=== PATIENT | male | born 1955 ===

== ENCOUNTER 2016-05-31 09:36 | Inpatient (IN) | payer OTHER ==
[2016-05-31 09:47] VITALS: BMI 25.8
[2016-05-31] MEDS ORDERED: Labetalol 25mg/5ml Syringe IVP STA (10:08)
--- NOTE | 2016-05-31 10:11 | C.PDOC ---
History Of Present Illness NEW ONSET DIZZY, BLURRED VISION SINCE LAST NIGHT. DENIES VISION LOSS. +HEADACHE "BUT MILD". DENIES HO HTN. NO CP, SOB, NV. PATIENT DESCRIBES DIZZINESS LIGHTHEADENESS SENSATION. PATIENT DENIES VERTIGO TYPE SYMPTOMS. NOTES THAT HE NORMALLY WEARS READING GLASSES. EXAM NAD NEURO SEE [facility] REMAINDER NEG Time Seen by Provider: 05/31/16 10:06 Chief Complaint (Nursing): Dizziness/Lightheaded History Per: Patient History/Exam Limitations: no limitations Onset/Duration Of Symptoms: Days Current Symptoms Are (Timing): Still Present Recent travel outside of the [place]: No Past Medical History Reviewed: Historical Data, Nursing Documentation, Vital Signs Vital Signs: Last Vital Signs Temp 98.1 F 05/31/16 09:48 Pulse 67 05/31/16 10:54 Resp 14 05/31/16 10:54 BP 160/100 H 05/31/16 10:54 Pulse Ox 98 05/31/16 11:03 Family History: States: Unknown Family Hx Review Of Systems Except As Marked, All Systems Reviewed And Found Negative. Constitutional: Negative for: Fever, Chills Cardiovascular: Negative for: Chest Pain, Palpitations Respiratory: Negative for: Shortness of Breath Gastrointestinal: Negative for: Nausea, Vomiting Neurological: Positive for: Headache, Dizziness. Negative for: Weakness, Numbness Physical Exam - Physical Exam Appears: Non-toxic, No Acute Distress Skin: Normal Color, Warm, Dry Head: Atraumatic, Normacephalic Eye(s): bilateral: Normal Inspection, PERRL, EOMI, Other (SINGLE EYE TEST NEG) Oral Mucosa: Moist Chest: Symmetrical Cardiovascular: Rhythm Regular Respiratory: Normal Breath Sounds, No Rales, No Rhonchi, No Wheezing Gastrointestinal/Abdominal: Soft, No Tenderness, No Guarding, No Rebound Back: Normal Inspection Extremity: Normal ROM, Capillary Refill (< 2 SEC.) Neurological/Psych: Other (SEE [facility]) ED Course And Treatment - Laboratory Results Result Diagrams: 05/31/16 10:38 05/31/16 10:38 ECG: Interpreted By Mn ECG Rhythm: Sinus Rhythm ECG Interpretation: Abnormal Interpretation Of ECG: TWI II, III, AVF, V4-6; NO PRIOR Rate From EC O2 Sat by Pulse Oximetry: 98 Pulse Ox Interpretation: Normal - Radiology CXR: Interpreted by Me CXR Interpretation: Yes: No Acute Disease - CT Scan/US CT Head Other Rad Studies (CT/US): Read By Radiologist, Radiology Report Reviewed CT/US Interpretation: IMPRESSION: No acute intracranial abnormality. Progress - Re-Evaluation Re-evaluation Note: 05/31/16 10:08 CT HEAD, CXR, EKG, BLOODWORK ORDERED. LABETALOL DRIP. 05/31/16 10:39 CXR NEGATIVE FOR ACUTE DISEASE. 05/31/16 10:45 EXAM UNCH. MIN IMPROVE S/P LABETOLOL 05/31/16 11:02 D/W DR HENSLEY AWARE OF ER FINDINGS WILL ADMIT - Data Reviewed Data Reviewed: Lab, Diagnostic imaging, EKG, Old records - Continuity of Care Discussed patient case with:: Patient, Family-HIPPA compliant, On-call PMD-pt unassigned Disposition Counseled Patient/Family Regarding: Studies Performed, Diagnosis - Disposition Disposition: HOSPITALIZED Disposition Time: 11:02 Condition: STABLE - POA Present On Arrival: None - Clinical Impression Clinical Impression: Dizziness, Uncontrolled hypertension, Abnormal EKG, Blurry vision - Scribe Statement The provider has reviewed the documentation as recorded by the Kevin Loza Provider Scribe Attestation: All medical record entries made by the Scribe were at my direction and personally dictated by me. I have reviewed the chart and agree that the record accurately reflects my personal performance of the history, physical exam, medical decision making, and the department course for this patient. I have also personally directed, reviewed, and agree with the discharge instructions and disposition. Decision To Admit - Pt Status Changed To: Hospital Disposition Of: Inpatient - Admit Certification Admit to Inpatient:: After my assessment, the patient will require hospitalization for at least two midnights. This is because of the severity of symptoms shown, intensity of services needed, and/or the medical risk in this patient being treated as an outpatient. - InPatient: Physician Admission Certification: I certify that this patient requires 2 or more midnights of care for the following reason:: SEE NOTE - . Bed Request Type: Telemetry Admitting Physician: Norma Hensley Patient Diagnosis: Dizziness, Uncontrolled hypertension, Abnormal EKG, Blurry vision
[2016-05-31] MEDS ORDERED: Labetalol 300 MG in Dextrose 5% In Water 240 ML IV SCH (10:15)
[2016-05-31] MEDS ORDERED: Labetalol 25mg/5ml Syringe ONE (10:22)
--- NOTE | 2016-05-31 10:22 | CT ---
PROCEDURE: CT HEAD WITHOUT CONTRAST. HISTORY: DIZZY BLURRY VISION STOKE ALERT COMPARISON: None available. TECHNIQUE: Axial computed tomography images were obtained through the head/brain without intravenous contrast. Radiation dose: Total exam DLP = 764 mGy-cm. FINDINGS: HEMORRHAGE: No intracranial hemorrhage. BRAIN: No mass effect or edema. No atrophy or chronic microvascular ischemic changes. VENTRICLES: Unremarkable. No hydrocephalus. CALVARIUM: Unremarkable. PARANASAL SINUSES: Unremarkable as visualized. No significant inflammatory changes. MASTOID AIR CELLS: Unremarkable as visualized. No inflammatory changes. OTHER FINDINGS: None. IMPRESSION: No acute intracranial abnormality. If focal neurologic deficit persists, consider MRI. These findings were discussed with at 10:18 a.m. on 05/31/2016.
--- NOTE | 2016-05-31 10:42 | RAD ---
HISTORY: DIZZY, BLURRED VISION COMPARISON: No prior. FINDINGS: LUNGS: No active pulmonary disease. PLEURA: No significant pleural effusion identified, no pneumothorax apparent. CARDIOVASCULAR: Normal. OSSEOUS STRUCTURES: No significant abnormalities. VISUALIZED UPPER ABDOMEN: Normal. OTHER FINDINGS: None. IMPRESSION: No active disease.
[2016-05-31 10:49] LABS: BASO % 0.4 % (0.0-2.0); EOS % 1.4 % (0.0-4.0); LYMPH # 1.2 K/uL (1.0-4.3); LYMPH % 35.8 % (20.0-40.0); MEAN CELL VOLUME 80.2 fL (80.0-94.0); MEAN CORPUSCULAR HGB CONC 33.7 g/dL (33.0-37.0); MEAN PLATELET VOLUME 10.1 fL (7.2-11.7); MONO # 0.3 K/uL (0.0-0.8); MONO % 9.8 % (0.0-10.0); NRBC % 0.2 % (0.0-2.0); RED CELL DISTRIBUTION WIDTH 14.1 % (11.5-14.5); WHITE BLOOD COUNT 3.4 K/uL (4.8-10.8)
[2016-05-31 10:51] LABS: CHLORIDE 100 mmol/L (98-107)
[2016-05-31 10:52] LABS: POTASSIUM 3.6 mmol/L (3.6-5.2); SODIUM 141 mmol/L (132-148)
[2016-05-31 10:54] LABS: ALB/GLOB RATIO 1.3 (1.0-2.1); ALKALINE PHOSPHATASE 54 U/L (38-126); AST/SGOT 27 U/L (17-59); BILIRUBIN,TOTAL 0.9 mg/dL (0.2-1.3); BLOOD UREA NITROGEN 15 mg/dL (9-20); CARBON DIOXIDE 29 mmol/L (22-30); CHOLESTEROL 163 mg/dL (0-199); GFR AFRICAN-AMERICAN > 60; TOTAL PROTEIN 7.6 g/dL (6.3-8.3)
[2016-05-31 10:55] LABS: ALT/SGPT 36 U/L (21-72); CALCIUM 9.1 mg/dl (8.6-10.4); GLUCOSE,RANDOM 92 mg/dL (75-110)
--- NOTE | 2016-05-31 13:11 | CP.PCM.HP ---
<Holly Brown - Last Filed: 05/31/16 14:16> History of Present Illness - History of Present Illness History of Present Illness: Internal medicine H & P for Dr. Cruz Brown, PGY-1 Pt S & E at bedside. History obtained with aide of [facility] interpretion- Trisha #[id number] 61M Irish speaking only w/PMH sig for recurrent migraines admitted for headache x 1 day. Pt reports headache onset last night at 10pm. Headache is frontal, non radiation, moderate intensity, intermittent since onset. Has had headaches previously, this one was different due to dizziness, decreased vision , blurry vision, photophobia. Tried an advil without relief. No inciting, aggravating or alleviating factors identified. Pt was able to sleep last night , reports dizziness when getting up to go to the bathroom. Dizziness described as his body spinning within the room. Denies N/V/F/C, SOB, CP, palpitations, diaphoresis, cough, congestion, sore throat, rhinorrhea, constipation, diarrhea, dysuria, frequency, hematuria, hematochezia, gait changes, slurred speech, weakness, changes in eating, changes in weight, changes in sleep pattern. PMH: recurrent migraine headaches PSH: Denies All: Denies SH: Occasional ETOH use, Denies tobacco or illicit drug use PMD: Denies- last saw a dr in [place]- was told he had no health problems Home meds: Denies FH: F- HTN Present on Admission - Present on Admission Any Indicators Present on Admission: No History of DVT/PE: No History of Uncontrolled Diabetes: No Urinary Catheter: No Decubitus Ulcer Present: No Review of Systems - Review of Systems All systems: reviewed and no additional remarkable complaints except - Constitutional Constitutional: Headache. absent: Chills, Excessive Sweating, Fever, Weight Gain, Weight Loss, Weakness - EENT Eyes: Blurred Vision, Change in Vision, Photophobia, Loss of Vision. absent: Diplopia Ears: Dizziness Nose/Mouth/Throat: absent: Nasal Congestion, Nasal Discharge, Sore Throat - Cardiovascular Cardiovascular: absent: Chest Pain, Leg Edema, Palpitations - Respiratory Respiratory: absent: Cough, Chest Congestion - Gastrointestinal Gastrointestinal: absent: Abdominal Pain, Constipation, Diarrhea, Hematemesis, Hematochezia, Nausea, Vomiting - Genitourinary Genitourinary: absent: Change in Urinary Stream, Dysuria, Hematuria - Musculoskeletal Musculoskeletal: absent: Neck Pain, Numbness, Stiffness, Tingling - Neurological Neurological: Dizziness, Headaches. absent: Abnormal Gait, Weakness - Endocrine Endocrine: absent: Fatigue, Palpitations Past Patient History - Past Social History Smoking Status: Never Smoked - CARDIAC Hx Cardiac Disorders: Yes Hx Hypercholesterolemia: Yes - GASTROINTESTINAL Hx Gastrointestinal Disorders: Yes Hx Gastritis: Yes - PSYCHIATRIC Hx Substance Use: No - SURGICAL HISTORY Hx Surgeries: No Meds Allergies/Adverse Reactions: Allergies Allergy/AdvReac Type Severity Reaction Status Date / Time No Known Allergies Allergy Verified 05/31/16 09:47 Physical Exam - Constitutional Appears: Non-toxic, No Acute Distress - Head Exam Head Exam: ATRAUMATIC, NORMAL INSPECTION, NORMOCEPHALIC - Eye Exam Eye Exam: EOMI, Normal appearance, PERRL Pupil Exam: NORMAL ACCOMODATION, PERRL - ENT Exam ENT Exam: Mucous Membranes Moist, Normal Exam - Neck Exam Neck exam: Positive for: Full Rom, Normal Inspection - Respiratory Exam Respiratory Exam: Clear to Auscultation Bilateral, NORMAL BREATHING PATTERN. absent: Rales, Rhonchi, Wheezes, Respiratory Distress - Cardiovascular Exam Cardiovascular Exam: REGULAR RHYTHM, +S1, +S2 - GI/Abdominal Exam GI & Abdominal Exam: Normal Bowel Sounds, Soft. absent: Distended, Firm, Guarding, Hernia, Tenderness - Extremities Exam Extremities exam: Positive for: full ROM, normal inspection. Negative for: pedal edema, tenderness - Back Exam Back exam: FULL ROM, NORMAL INSPECTION. absent: muscle spasm, paraspinal tenderness, tenderness - Neurological Exam Neurological exam: Alert, CN II-XII Intact, Oriented x3 - Expanded Neurological Exam Expanded Neuro motor strength exam: Left Upper Extremity: 5, Right Upper Extremity: 5, Left Lower Extremity: 5, Right Lower Extremity: 5 - Psychiatric Exam Psychiatric exam: Normal Affect, Normal Mood - Skin Skin Exam: Dry, Intact, Normal Color, Warm Results - Vital Signs Recent Vital Signs: Last Vital Signs Temp 98.1 F 05/31/16 09:48 Pulse 75 05/31/16 12:51 Resp 16 05/31/16 12:51 BP 140/82 05/31/16 12:51 Pulse Ox 97 05/31/16 12:51 - Labs Result Diagrams: 05/31/16 10:38 05/31/16 10:38 Assessment & Plan - Assessment and Plan (Free Text) Assessment: HTN urgency BP 195/116 Given hydralazine & Labetalol in ED BP now 140/80 Started Lopressor 25mg PO BID ASA 81mg daily Zofran PRN Tylenol PRN FU Echo SRINIVASA neg x 1 FU serial SRINIVASA Cardio consulted- [facility] GI/DVT ppx SCDs Lovenox Ambulate w/assistance Dispo Admit to med surg VS @4H HHD OOBTC Ambulate w/assistance DW attending - Date & Time Date: 05/31/16 Time: 13:05 <Jamar Calderon - Last Filed: 05/31/16 17:08> Results - Vital Signs Recent Vital Signs: Last Vital Signs Temp 97.8 F 05/31/16 16:38 Pulse 76 05/31/16 16:38 Resp 14 05/31/16 16:38 BP 154/95 H 05/31/16 16:38 Pulse Ox 97 05/31/16 14:11 - Labs Result Diagrams: 05/31/16 10:38 05/31/16 10:38 Attending/Attestation - Attestation I have personally seen and examined this patient.: Yes I have fully participated in the care of the patient.: Yes I have reviewed all pertinent clinical information: Yes Notes (Text): 05/31/16 17:07 Patient was seen and examined at bedside with the resident the time of admission Patient denies any dizziness or chest discomfort at this time We will admit the patient to telemetry and we will get cardiology evaluation I discussed the plan of care with the resident and I agree with the above history and physical and assessment and plan by the resident
[2016-05-31] MEDS ORDERED: Enoxaparin 30 mg Syringe ONE (14:41)
[2016-05-31] MEDS: Enoxaparin 30 mg Syringe SC SCH (14:42)
[2016-05-31 20:51] VITALS: RESP 20
[2016-05-31] MEDS ORDERED: Pneumococcal 23-Valent Vaccine IM ONE (22:46)
[2016-06-01 07:08] LABS: BASO % 0.5 % (0.0-2.0); EOS % 1.5 % (0.0-4.0); HEMATOCRIT 40.9 % (35.0-51.0); LYMPH # 1.3 K/uL (1.0-4.3); MEAN CELL VOLUME 80.7 fL (80.0-94.0); MEAN CORPUSCULAR HEMOGLOBIN 27.1 pg (27.0-31.0); MEAN CORPUSCULAR HGB CONC 33.6 g/dL (33.0-37.0); MONO # 0.3 K/uL (0.0-0.8); MONO % 9.5 % (0.0-10.0); NRBC % 0.1 % (0.0-2.0); WHITE BLOOD COUNT 3.3 K/uL (4.8-10.8)
[2016-06-01 07:19] LABS: CHLORIDE 98 mmol/L (98-107)
[2016-06-01 07:20] LABS: POTASSIUM 3.3 mmol/L (3.6-5.2); SODIUM 141 mmol/L (132-148)
[2016-06-01 07:22] LABS: BILIRUBIN,TOTAL 0.9 mg/dL (0.2-1.3); GFR AFRICAN-AMERICAN > 60
[2016-06-01 07:23] LABS: ALB/GLOB RATIO 1.4 (1.0-2.1); ALKALINE PHOSPHATASE 51 U/L (38-126); ALT/SGPT 33 U/L (21-72); AST/SGOT 21 U/L (17-59); BLOOD UREA NITROGEN 15 mg/dL (9-20); CALCIUM 8.6 mg/dl (8.6-10.4); CARBON DIOXIDE 29 mmol/L (22-30); GLUCOSE,RANDOM 97 mg/dL (75-110); TOTAL PROTEIN 6.4 g/dL (6.3-8.3)
[2016-06-01] MEDS ORDERED: Potassium Chloride 20 mEq ER Tab PO ONE (08:36)
[2016-06-01] MEDS: Enoxaparin 30 mg Syringe SC SCH (09:19)
[2016-06-01] MEDS ORDERED: Influenza Virus Vaccine 45 mcg/0.5 ml Syr IM ONE (10:00)
[2016-06-01] MEDS ORDERED: Pneumococcal 23-Valent Vaccine IM ONE ×2 (10:00→13:30)
--- NOTE | 2016-06-01 13:12 | CP.PCM.CON ---
History of Present Illness - History of Present Illness History of Present Illness: 61M Tajik speaking only w/PMH sig for recurrent migraines admitted for headache x 1 day. Pt reports headache onset last night at 10pm. Headache is frontal, non radiation, moderate intensity, intermittent since onset. Has had headaches previously, this one was different due to dizziness, decreased vision , blurry vision, photophobia. Tried an advil without relief. No inciting, aggravating or alleviating factors identified. Denies N/V/F/C, SOB, CP, palpitations, diaphoresis, cough, congestion, sore throat, rhinorrhea, constipation, diarrhea, dysuria, frequency, hematuria, hematochezia, gait changes, slurred speech, weakness, changes in eating, changes in weight, changes in sleep pattern. UPON ADMISSION PT NOTED TO HAVE CRITICALLY HIGH BP. PMH: recurrent migraine headaches PSH: Denies All: Denies SH: Occasional ETOH use, Denies tobacco or illicit drug use Review of Systems - Constitutional Constitutional: As Per HPI - EENT Eyes: As Per HPI Ears: As Per HPI Nose/Mouth/Throat: As Per HPI - Cardiovascular Cardiovascular: As Per HPI - Respiratory Respiratory: As Per HPI - Gastrointestinal Gastrointestinal: As Per HPI - Musculoskeletal Musculoskeletal: As Per HPI - Integumentary Integumentary: As Per HPI - Neurological Neurological: As Per HPI - Psychiatric Psychiatric: As Per HPI - Endocrine Endocrine: As Per HPI - Hematologic/Lymphatic Hematologic: As Per HPI Past Patient History - Past Medical History & Family History Past Medical History?: Yes - Past Social History Smoking Status: Never Smoked Alcohol: Occasional - CARDIAC Hx Cardiac Disorders: Yes Hx Hypercholesterolemia: Yes Hx Hypertension: Yes - PULMONARY Hx Respiratory Disorders: No - NEUROLOGICAL Hx Neurological Disorder: No - HEENT Hx HEENT Problems: No - RENAL Hx Chronic Kidney Disease: No - ENDOCRINE/METABOLIC Hx Endocrine Disorders: No - HEMATOLOGICAL/ONCOLOGICAL Hx Blood Disorders: No - INTEGUMENTARY Hx Dermatological Problems: No - MUSCULOSKELETAL/RHEUMATOLOGICAL Hx Falls: No - GASTROINTESTINAL Hx Gastrointestinal Disorders: Yes Hx Gastritis: Yes - GENITOURINARY/GYNECOLOGICAL Hx Genitourinary Disorders: No - PSYCHIATRIC Hx Psychophysiologic Disorder: No Hx Substance Use: No - SURGICAL HISTORY Hx Surgeries: No - ANESTHESIA Hx Anesthesia: No Hx Anesthesia Reactions: No Meds Allergies/Adverse Reactions: Allergies Allergy/AdvReac Type Severity Reaction Status Date / Time No Known Allergies Allergy Verified 05/31/16 09:47 - Medications Medications: Current Medications Acetaminophen (Tylenol 325mg Tab) 650 mg PO Q6 PRN PRN Reason: Pain, moderate (4-7) Last Admin: 05/31/16 21:16 Dose: 650 mg Amlodipine Besylate (Norvasc) 5 mg PO DAILY REPLACED BY [facility] Aspirin (Aspirin Chewable) 81 mg PO DAILY REPL[facility] BY [facility] Last Admin: 06/01/16 09:21 Dose: 81 mg Enoxaparin Sodium (Lovenox) 30 mg SC DAILY REPLACED BY [facility] Last Admin: 06/01/16 09:19 Dose: 30 mg Famotidine (Pepcid) 20 mg PO BID REPL[facility] BY [facility] Last Admin: 06/01/16 09:19 Dose: 20 mg Metoprolol Tartrate (Lopressor) 25 mg PO Q6 REPLACED BY [facility] Ondansetron HCl (Zofran Inj) 4 mg IVP Q6 PRN PRN Reason: Nausea/Vomiting Physical Exam - Constitutional Appears: Well - Head Exam Head Exam: ATRAUMATIC, NORMAL INSPECTION, NORMOCEPHALIC - Eye Exam Eye Exam: EOMI, Normal appearance, PERRL Pupil Exam: NORMAL ACCOMODATION, PERRL - ENT Exam ENT Exam: Mucous Membranes Moist, Normal Exam - Neck Exam Neck exam: Positive for: Normal Inspection - Respiratory Exam Respiratory Exam: Clear to Auscultation Bilateral, NORMAL BREATHING PATTERN - Cardiovascular Exam Cardiovascular Exam: REGULAR RHYTHM - GI/Abdominal Exam GI & Abdominal Exam: Normal Bowel Sounds, Soft. absent: Tenderness - Extremities Exam Extremities exam: Positive for: normal inspection - Back Exam Back exam: NORMAL INSPECTION - Neurological Exam Neurological exam: Alert, CN II-XII Intact, Normal Gait, Oriented x3, Reflexes Normal - Psychiatric Exam Psychiatric exam: Normal Affect, Normal Mood - Skin Skin Exam: Dry, Intact, Normal Color, Warm Results - Vital Signs Recent Vital Signs: Last Vital Signs Temp 98.0 F 06/01/16 08:25 Pulse 75 06/01/16 08:25 Resp 20 06/01/16 08:25 BP 149/86 06/01/16 09:19 Pulse Ox 98 06/01/16 08:25 - Labs Result Diagrams: 06/01/16 06:55 06/01/16 06:55 Labs: Laboratory Results - last 24 hr 03/30/17 03/30/17 03/31/17 17:35 22:10 02:53 WBC RBC Hgb Hct MCV MCH MCHC RDW Plt Count MPV Neut % (Auto) Lymph % (Auto) [place] % (Auto) Eos % (Auto) Baso % (Auto) Neut # Lymph # [place] # Eos # Baso # Differential Comment Sodium Potassium Chloride Carbon Dioxide Anion Gap BUN Creatinine Est GFR ( Amer) Est GFR (Non-Af Amer) POC Glucose (mg/dL) 126 H Random Glucose Calcium Total Bilirubin AST ALT Alkaline Phosphatase Total Creatine Kinase 46 L 55 CK-MB (Mass) 0.28 0.35 Troponin I, Quant < 0.0120 < 0.0120 Total Protein Albumin Globulin Albumin/Globulin Ratio 06/01/16 06:55 WBC 3.3 L RBC 5.07 Hgb 13.8 Hct 40.9 MCV 80.7 MCH 27.1 MCHC 33.6 RDW 14.0 Plt Count 116 L MPV 9.0 Neut % (Auto) 48.5 L Lymph % (Auto) 40.0 [place] % (Auto) 9.5 Eos % (Auto) 1.5 Baso % (Auto) 0.5 Neut # 1.6 L Lymph # 1.3 [place] # 0.3 Eos # 0.0 Baso # 0.0 Differential Comment Sodium 141 Potassium 3.3 L Chloride 98 Carbon Dioxide 29 Anion Gap 17 BUN 15 Creatinine 0.9 Est GFR ( Amer) > 60 Est GFR (Non-Af Amer) > 60 POC Glucose (mg/dL) Random Glucose 97 Calcium 8.6 Total Bilirubin 0.9 AST 21 ALT 33 Alkaline Phosphatase 51 Total Creatine Kinase CK-MB (Mass) Troponin I, Quant Total Protein 6.4 Albumin 3.7 Globulin 2.7 Albumin/Globulin Ratio 1.4 Assessment & Plan (1) Blurry vision Status: Acute (2) Dizziness Status: Acute (3) Hypertensive urgency Status: Acute (4) Headache Status: Acute - Assessment and Plan (Free Text) Plan: PTS BP HAS DECREASED WILL INCREASE METOPROLOL THIS WILL TREAT BP AND MIGRAINES MONITOR BP WILL REVIEW ECHO
--- NOTE | 2016-06-01 17:18 | CP.PCM.PN ---
<Holly Brown - Last Filed: 06/01/16 17:15> Subjective - Date & Time of Evaluation Date of Evaluation: 06/01/16 Time of Evaluation: 09:00 - Subjective Subjective: Internal medicine progress note for Dr. Nilsa Brown, PGY-1 Pt S & E at bedside. Pt reports headache much improved, no longer dizzy, vision ok. Denies N/V/F/C, SOB, CP, eating ok, tolerating diet, sleeping ok, gait normal. Objective - Vital Signs/Intake and Output Vital Signs (last 24 hours): Temp Pulse Resp BP Pulse Ox 98.2 F 83 20 144/77 98 06/01/16 16:00 06/01/16 16:00 06/01/16 16:00 06/01/16 16:00 06/01/16 16:00 - Medications Medications: Current Medications Acetaminophen (Tylenol 325mg Tab) 650 mg PO Q6 PRN PRN Reason: Pain, moderate (4-7) Last Admin: 05/31/16 21:16 Dose: 650 mg Amlodipine Besylate (Norvasc) 5 mg PO DAILY [facility] Aspirin (Aspirin Chewable) 81 mg PO DAILY [facility] Last Admin: 06/01/16 09:21 Dose: 81 mg Enoxaparin Sodium (Lovenox) 30 mg SC DAILY [facility] Last Admin: 06/01/16 09:19 Dose: 30 mg Famotidine (Pepcid) 20 mg PO BID [facility] Last Admin: 06/01/16 09:19 Dose: 20 mg Metoprolol Tartrate (Lopressor) 25 mg PO Q6 [facility] Ondansetron HCl (Zofran Inj) 4 mg IVP Q6 PRN PRN Reason: Nausea/Vomiting - Labs Labs: 06/01/16 06:55 06/01/16 06:55 PT 11.8 SECONDS (9.7-12.2) 05/31/16 10:38 INR 1.0 05/31/16 10:38 APTT 29 SECONDS (21-34) 05/31/16 10:38 - Constitutional Appears: Non-toxic, No Acute Distress - Head Exam Head Exam: ATRAUMATIC, NORMAL INSPECTION, NORMOCEPHALIC - Eye Exam Eye Exam: EOMI, Normal appearance, PERRL. absent: Nystagmus Pupil Exam: NORMAL ACCOMODATION, PERRL - ENT Exam ENT Exam: Mucous Membranes Moist, Normal Exam - Neck Exam Neck Exam: Full ROM, Normal Inspection - Respiratory Exam Respiratory Exam: Clear to Ausculation Bilateral, NORMAL BREATHING PATTERN. absent: Rales, Rhonchi, Wheezes, Respiratory Distress - Cardiovascular Exam Cardiovascular Exam: REGULAR RHYTHM, +S1, +S2 - GI/Abdominal Exam GI & Abdominal Exam: Soft, Normal Bowel Sounds. absent: Tenderness - Rectal Exam Rectal Exam: NORMAL INSPECTION - Extremities Exam Extremities Exam: Full ROM, Normal Inspection. absent: Pedal Edema, Tenderness - Back Exam Back Exam: Full ROM, NORMAL INSPECTION - Neurological Exam Neurological Exam: Alert, Awake, CN II-XII Intact, Normal Gait, Oriented x3 - Psychiatric Exam Psychiatric exam: Normal Affect, Normal Mood - Skin Skin Exam: Dry, Intact, Normal Color, Warm Assessment and Plan - Assessment and Plan (Free Text) Assessment: HTN urgency BP 195/116 on admission BP 161/91 Lopressor 25mg PO BID ASA 81mg daily Zofran PRN Tylenol PRN FU Echo- pending report SRINIVASA neg x 3 Lipid panel WNL Cardio consulted- [facility]- recs to increase metoprolol to Q6H to treat BP & Migraines, will review echo GI/DVT ppx SCDs Lovenox Ambulate w/assistance Dispo HHD OOBTC Ambulate w/assistance Discharge pending cardiac clearance & echo report DW attending <Jamar Calderon - Last Filed: 06/01/16 17:54> Objective - Vital Signs/Intake and Output Vital Signs (last 24 hours): Temp Pulse Resp BP Pulse Ox 98.2 F 83 20 144/77 98 06/01/16 16:00 06/01/16 16:00 06/01/16 16:00 06/01/16 17:31 06/01/16 16:00 - Medications Medications: Current Medications Acetaminophen (Tylenol 325mg Tab) 650 mg PO Q6 PRN PRN Reason: Pain, moderate (4-7) Last Admin: 05/31/16 21:16 Dose: 650 mg Amlodipine Besylate (Norvasc) 5 mg PO DAILY [facility] Aspirin (Aspirin Chewable) 81 mg PO DAILY [facility] Last Admin: 06/01/16 09:21 Dose: 81 mg Enoxaparin Sodium (Lovenox) 30 mg SC DAILY [facility] Last Admin: 06/01/16 09:19 Dose: 30 mg Famotidine (Pepcid) 20 mg PO BID [facility] Last Admin: 06/01/16 17:32 Dose: 20 mg Metoprolol Tartrate (Lopressor) 25 mg PO Q6 [facility] Last Admin: 06/01/16 17:31 Dose: 25 mg Ondansetron HCl (Zofran Inj) 4 mg IVP Q6 PRN PRN Reason: Nausea/Vomiting - Labs Labs: 06/01/16 06:55 06/01/16 06:55 PT 11.8 SECONDS (9.7-12.2) 05/31/16 10:38 INR 1.0 05/31/16 10:38 APTT 29 SECONDS (21-34) 05/31/16 10:38 Attending/Attestation - Attestation I have personally seen and examined this patient.: Yes I have fully participated in the care of the patient.: Yes I have reviewed all pertinent clinical information, including history, physical exam and plan: Yes Notes (Text): 06/01/16 17:53 Patient was seen and examined at bedside with the resident at the rounds today Patient denies any dizziness at this time Denies any chest pain, chest discomfort or palpitation Patient's echocardiogram report is pending Cardiology evaluation seen in appreciated Patient blood pressure medication titrated for optimal control Discharge planning pending clearance from cardiology likely tomorrow I discussed the plan of care with the resident and agree with the above history and physical and assessment/plan by the resident
--- NOTE | 2016-06-02 06:27 | CARD ---
APPROVED REPORT EKG Measurement Heart [id number] NM [id number] <Conclusion> Normal sinus rhythm Possible Left atrial enlargement Left axis deviation Left ventricular hypertrophy T wave abnormality, consider lateral ischemia Abnormal ECG
--- NOTE | 2016-06-02 07:20 | CP.PCM.PN ---
Objective - Vital Signs/Intake and Output Vital Signs (last 24 hours): Temp Pulse Resp BP Pulse Ox 97.9 F 72 20 135/86 98 06/02/16 04:39 06/02/16 04:39 06/02/16 04:39 06/02/16 05:17 06/01/16 23:40 Intake and Output: 06/02/16 06/02/16 06:59 18:59 Intake Total 500 Balance 500 - Medications Medications: Current Medications Acetaminophen (Tylenol 325mg Tab) 650 mg PO Q6 PRN PRN Reason: Pain, moderate (4-7) Last Admin: 05/31/16 21:16 Dose: 650 mg Amlodipine Besylate (Norvasc) 5 mg PO DAILY [facility] Aspirin (Aspirin Chewable) 81 mg PO DAILY [facility] Last Admin: 06/01/16 09:21 Dose: 81 mg Enoxaparin Sodium (Lovenox) 30 mg SC DAILY [facility] Last Admin: 06/01/16 09:19 Dose: 30 mg Famotidine (Pepcid) 20 mg PO BID [facility] Last Admin: 06/01/16 17:32 Dose: 20 mg Metoprolol Tartrate (Lopressor) 25 mg PO Q6 [facility] Last Admin: 06/02/16 05:17 Dose: 25 mg Ondansetron HCl (Zofran Inj) 4 mg IVP Q6 PRN PRN Reason: Nausea/Vomiting - Labs Labs: 06/01/16 06:55 06/01/16 06:55 PT 11.8 SECONDS (9.7-12.2) 05/31/16 10:38 INR 1.0 05/31/16 10:38 APTT 29 SECONDS (21-34) 05/31/16 10:38
[2016-06-02 07:46] LABS: BASO % 0.4 % (0.0-2.0); EOS # 0.1 K/uL (0.0-0.7); EOS % 1.6 % (0.0-4.0); HEMATOCRIT 42.2 % (35.0-51.0); LYMPH # 1.5 K/uL (1.0-4.3); LYMPH % 34.7 % (20.0-40.0); MEAN CELL VOLUME 80.9 fL (80.0-94.0); MEAN CORPUSCULAR HEMOGLOBIN 26.9 pg (27.0-31.0); MEAN CORPUSCULAR HGB CONC 33.3 g/dL (33.0-37.0); MEAN PLATELET VOLUME 9.6 fL (7.2-11.7); MONO # 0.4 K/uL (0.0-0.8); MONO % 8.3 % (0.0-10.0); RED CELL DISTRIBUTION WIDTH 14.1 % (11.5-14.5); WHITE BLOOD COUNT 4.2 K/uL (4.8-10.8)
[2016-06-02 07:56] LABS: CHLORIDE 99 mmol/L (98-107); SODIUM 141 mmol/L (132-148)
[2016-06-02 07:57] LABS: POTASSIUM 3.6 mmol/L (3.6-5.2)
[2016-06-02 07:59] LABS: ALB/GLOB RATIO 1.4 (1.0-2.1); ALKALINE PHOSPHATASE 51 U/L (38-126); ALT/SGPT 27 U/L (21-72); AST/SGOT 20 U/L (17-59); BILIRUBIN,TOTAL 0.5 mg/dL (0.2-1.3); BLOOD UREA NITROGEN 17 mg/dL (9-20); CARBON DIOXIDE 28 mmol/L (22-30); GFR AFRICAN-AMERICAN > 60; GLUCOSE,RANDOM 94 mg/dL (75-110); TOTAL PROTEIN 6.5 g/dL (6.3-8.3)
[2016-06-02] MEDS: Enoxaparin 30 mg Syringe SC SCH (10:37)
--- NOTE | 2016-06-02 14:05 | CP.PCM.DIS ---
<Luis Hernández H - Last Filed: 06/02/16 19:51> Provider - Provider Date of Admission: 05/31/16 11:04 Attending physician: Jamar Calderon MD Primary care physician: none Consults: Dr. Godoy cardiology Time Spent in preparation of Discharge (in minutes): 30 Hospital Course - Lab Results Lab Results: Most Recent Lab Values WBC 4.2 K/uL (4.8-10.8) L 06/02/16 07:30 RBC 5.21 Mil/uL (4.40-5.90) 06/02/16 07:30 Hgb 14.0 g/dL (12.0-18.0) 06/02/16 07:30 Hct 42.2 % (35.0-51.0) 06/02/16 07:30 MCV 80.9 fL (80.0-94.0) 06/02/16 07:30 MCH 26.9 pg (27.0-31.0) L 06/02/16 07:30 MCHC 33.3 g/dL (33.0-37.0) 06/02/16 07:30 RDW 14.1 % (11.5-14.5) 06/02/16 07:30 Plt Count 128 K/uL (130-400) L 06/02/16 07:30 MPV 9.6 fL (7.2-11.7) 06/02/16 07:30 Neut % (Auto) 55.0 % (50.0-75.0) 06/02/16 07:30 Lymph % (Auto) 34.7 % (20.0-40.0) 06/02/16 07:30 Crisp % (Auto) 8.3 % (0.0-10.0) 06/02/16 07:30 Eos % (Auto) 1.6 % (0.0-4.0) 06/02/16 07:30 Baso % (Auto) 0.4 % (0.0-2.0) 06/02/16 07:30 Neut # 2.3 K/uL (1.8-7.0) 06/02/16 07:30 Lymph # 1.5 K/uL (1.0-4.3) 06/02/16 07:30 Crisp # 0.4 K/uL (0.0-0.8) 06/02/16 07:30 Eos # 0.1 K/uL (0.0-0.7) 06/02/16 07:30 Baso # 0.0 K/uL (0.0-0.2) 06/02/16 07:30 Differential Comment 06/01/16 06:55 PT 11.8 SECONDS (9.7-12.2) 05/31/16 10:38 INR 1.0 05/31/16 10:38 APTT 29 SECONDS (21-34) 05/31/16 10:38 Sodium 141 mmol/L (132-148) 06/02/16 07:30 Potassium 3.6 mmol/L (3.6-5.2) 06/02/16 07:30 Chloride 99 mmol/L (98-107) 06/02/16 07:30 Carbon Dioxide 28 mmol/L (22-30) 06/02/16 07:30 Anion Gap 18 (10-20) 06/02/16 07:30 BUN 17 mg/dL (9-20) 06/02/16 07:30 Creatinine 1.0 MG/DL (0.8-1.5) 06/02/16 07:30 Est GFR ( Amer) > 60 06/02/16 07:30 Est GFR (Non-Af Amer) > 60 06/02/16 07:30 POC Glucose (mg/dL) 79 mg/dL (65-110) 06/01/16 21:49 Random Glucose 94 mg/dL (75-110) 06/02/16 07:30 Hemoglobin A1c 5.6 % (4.2-6.5) 05/31/16 10:38 Calcium 9.0 mg/dl (8.6-10.4) 06/02/16 07:30 Total Bilirubin 0.5 mg/dL (0.2-1.3) 06/02/16 07:30 AST 20 U/L (17-59) 06/02/16 07:30 ALT 27 U/L (21-72) 06/02/16 07:30 Alkaline Phosphatase 51 U/L (38-126) 06/02/16 07:30 Total Creatine Kinase 55 U/L (55-170) 06/01/16 02:53 CK-MB (Mass) 0.35 ng/mL (0.0-3.38) 06/01/16 02:53 Troponin I < 0.0120 ng/mL (0.00-0.120) 05/31/16 10:38 Troponin I, Quant < 0.0120 ng/mL (0.00-0.120) 06/01/16 02:53 Total Protein 6.5 g/dL (6.3-8.3) 06/02/16 07:30 Albumin 3.8 g/dL (3.5-5.0) 06/02/16 07:30 Globulin 2.7 gm/dL (2.2-3.9) 06/02/16 07:30 Albumin/Globulin Ratio 1.4 (1.0-2.1) 06/02/16 07:30 Triglycerides 78 mg/dL (0-149) 05/31/16 10:38 Cholesterol 163 mg/dL (0-199) 05/31/16 10:38 LDL Cholesterol Direct 89 mg/dL (0-129) 05/31/16 10:38 HDL Cholesterol 46 mg/dL (30-70) 05/31/16 10:38 Blood Type O POSITIVE 05/31/16 10:38 Antibody Screen Negative 05/31/16 10:38 - Hospital Course Hospital Course: Inital history 61M Indonesian speaking only w/PMH sig for recurrent migraines admitted for headache x 1 day. Pt reports headache onset last night at 10pm. Headache is frontal, non radiation, moderate intensity, intermittent since onset. Has had headaches previously, this one was different due to dizziness, decreased vision , blurry vision, photophobia. Tried an advil without relief. No inciting, aggravating or alleviating factors identified. Pt was able to sleep last night , reports dizziness when getting up to go to the bathroom. Dizziness described as his body spinning within the room. Denies N/V/F/C, SOB, CP, palpitations, diaphoresis, cough, congestion, sore throat, rhinorrhea, constipation, diarrhea, dysuria, frequency, hematuria, hematochezia, gait changes, slurred speech, weakness, changes in eating, changes in weight, changes in sleep pattern. Hospital course: Patient admitted for HTN urgency. He was ruled out for OH with 3 consecutive negative cardiac enzyme. Given IV medication for blood pressure and also given PO medication. An echo showed the follow per Dr. Godoy: Grad 1 diastolic dysfunction with normal EF at 60%, Mild to moderate tricuspid regurtiation, papillary arterial pressure is 30, Left Atria mildy enlarged. Patient had his vital signs monitored and was also monitored on telemetry as well. Discharge Plan Patient to be discharged per Dr. Calderon and Dr. Godoy. Patient will take Toprol XL 50mg twice a day and Norvasc 5mg once a day. He will be given a 30 day script for each medication. He will need to follow up with [facility] ([phone]) for post hospital follow up and medication refill and to establish primary care. Patient to return to ED if symptoms return. Discharge Diagnosis HTN urgency Grade 1 diastolic dysfunction Discharge Exam - Head Exam Head Exam: ATRAUMATIC, NORMAL INSPECTION, NORMOCEPHALIC - Eye Exam Eye Exam: Normal appearance Pupil Exam: NORMAL ACCOMODATION - Neck Exam Neck exam: Normal Inspection - Respiratory Exam Respiratory Exam: NORMAL BREATHING PATTERN - Cardiovascular Exam Cardiovascular Exam: REGULAR RHYTHM, RRR, +S1, +S2 - Extremities Exam Extremities exam: normal inspection - Back Exam Back exam: NORMAL INSPECTION - Neurological Exam Neurological exam: Oriented x3 - Psychiatric Exam Psychiatric exam: Normal Affect, Normal Mood - Skin Skin Exam: Normal Color, Warm Discharge Plan - Discharge Medications Prescriptions: amLODIPine [Norvasc] 5 mg PO ONCE #30 tab Metoprolol Succinate XL [Toprol XL] 50 mg PO BID #60 tab - Follow Up Plan Condition: STABLE Disposition: HOME/ ROUTINE Instructions: Metoprolol (By mouth), Amlodipine (By mouth), Heart Healthy Diet (DC), Hypertension (DC), Dizziness (GEN) Additional Instructions: Patient to be discharged per Dr. Calderon and Dr. Godoy. Patient will take Toprol XL 50mg twice a day and Norvasc 5mg once a day. He will be given a 30 day script for each medication. He will need to follow up with [facility] ([phone]) for post hospital follow up and medication refill and to establish primary care. Patient to return to ED if symptoms return. <Jamar Calderon - Last Filed: 06/03/16 14:08> Provider - Provider Date of Admission: 05/31/16 11:04 Attending physician: Jamar Calderon MD Hospital Course - Lab Results Lab Results: Most Recent Lab Values WBC 4.2 K/uL (4.8-10.8) L 06/02/16 07:30 RBC 5.21 Mil/uL (4.40-5.90) 06/02/16 07:30 Hgb 14.0 g/dL (12.0-18.0) 06/02/16 07:30 Hct 42.2 % (35.0-51.0) 06/02/16 07:30 MCV 80.9 fL (80.0-94.0) 06/02/16 07:30 MCH 26.9 pg (27.0-31.0) L 06/02/16:30 MCHC 33.3 g/dL (33.0-37.0) 06/02/16 07: RDW 14.1 % (11.5-14.5) 06/02/16 07:30 Plt Count 128 K/uL (130-400) L 06/02/16:30 MPV 9.6 fL (7.2-11.7) 06/02/16 07:30 Neut % (Auto) 55.0 % (50.0-75.0) 06/02/16 07:30 Lymph % (Auto) 34.7 % (20.0-40.0) 06/02/16 07:30 Crisp % (Auto) 8.3 % (0.0-10.0) 06/02/16 07:30 Eos % (Auto) 1.6 % (0.0-4.0) 06/02/16 07:30 Baso % (Auto) 0.4 % (0.0-2.0) 06/02/16 07:30 Neut # 2.3 K/uL (1.8-7.0) 06/02/16 07:30 Lymph # 1.5 K/uL (1.0-4.3) 06/02/16 07:30 Crisp # 0.4 K/uL (0.0-0.8) 06/02/16 07:30 Eos # 0.1 K/uL (0.0-0.7) 06/02/16 07:30 Baso # 0.0 K/uL (0.0-0.2) 06/02/16 07:30 Differential Comment 06/01/16 06:55 PT 11.8 SECONDS (9.7-12.2) 05/31/16 10:38 INR 1.0 05/31/16 10:38 APTT 29 SECONDS (21-34) 05/31/16 10:38 Sodium 141 mmol/L (132-148) 06/02/16 07:30 Potassium 3.6 mmol/L (3.6-5.2) 06/02/16 07:30 Chloride 99 mmol/L (98-107) 06/02/16 07:30 Carbon Dioxide 28 mmol/L (22-30) 06/02/16 07:30 Anion Gap 18 (10-20) 06/02/16 07:30 BUN 17 mg/dL (9-20) 06/02/16 07:30 Creatinine 1.0 MG/DL (0.8-1.5) 06/02/16 07:30 Est GFR ( Amer) > 60 06/02/16 07:30 Est GFR (Non-Af Amer) > 60 06/02/16 07:30 POC Glucose (mg/dL) 79 mg/dL (65-110) 06/01/16 21:49 Random Glucose 94 mg/dL (75-110) 06/02/16 07:30 Hemoglobin A1c 5.6 % (4.2-6.5) 05/31/16 10:38 Calcium 9.0 mg/dl (8.6-10.4) 06/02/16 07:30 Total Bilirubin 0.5 mg/dL (0.2-1.3) 06/02/16 07:30 AST 20 U/L (17-59) 06/02/16 07:30 ALT 27 U/L (21-72) 06/02/16 07:30 Alkaline Phosphatase 51 U/L (38-126) 06/02/16 07:30 Total Creatine Kinase 55 U/L (55-170) 06/01/16 02:53 CK-MB (Mass) 0.35 ng/mL (0.0-3.38) 06/01/16 02:53 Troponin I < 0.0120 ng/mL (0.00-0.120) 05/31/16 10:38 Troponin I, Quant < 0.0120 ng/mL (0.00-0.120) 06/01/16 02:53 Total Protein 6.5 g/dL (6.3-8.3) 06/02/16 07:30 Albumin 3.8 g/dL (3.5-5.0) 06/02/16 07:30 Globulin 2.7 gm/dL (2.2-3.9) 06/02/16 07:30 Albumin/Globulin Ratio 1.4 (1.0-2.1) 06/02/16 07:30 Triglycerides 78 mg/dL (0-149) 05/31/16 10:38 Cholesterol 163 mg/dL (0-199) 05/31/16 10:38 LDL Cholesterol Direct 89 mg/dL (0-129) 05/31/16 10:38 HDL Cholesterol 46 mg/dL (30-70) 05/31/16 10:38 Blood Type O POSITIVE 05/31/16 10:38 Antibody Screen Negative 05/31/16 10:38 Attending/Attestation - Attestation I have personally seen and examined this patient.: Yes I have fully participated in the care of the patient.: Yes I have reviewed all pertinent clinical information, including history, physical exam and plan: Yes Notes (Text): 06/03/16 14:06 Patient was seen and examined at bedside with the resident during rounds Patient denies any chest discomfort, dizziness, headache Echocardiogram reviewed by Dr. Godoy. As per his report patient has: Grade 1 diastolic dysfunction with normal EF at 60%, Mild to moderate tricuspid regurgitation, papillary arterial pressure is 30, Left Atria mildly enlarged. Patient clear for discharge by cardiology Discharge medication prescriptions provided to the patient Patient will follow-up with the [facility] I agree with the above discharge note by the resident.
[2016-06-02 15:25] VITALS: BP 155/84; PULSE 70; TEMP 97.9; O2SAT 98
--- NOTE | 2016-06-02 18:17 | CARD ---
APPROVED REPORT EXAM: Two-dimensional and M-mode echocardiogram with Doppler and color Doppler. Other Information Quality : GoodRhythm : INDICATION Abnormal EKG/Arrhythmia Dizziness and Vertigo RISK FACTORS Hypertension M-Mode DIMENSIONS RVDd1.43 (2.1-3.2cm)Left Atrium (MM)2.99 (2.5-4.0cm) IVSd1.20 (0.7-1.1cm)Aortic Root3.09 (2.2-3.7cm) LVDd5.11 (4.0-5.6cm)Aortic Cusp Exc.2.21 (1.5-2.0cm) PWd0.93 (0.7-1.1cm)FS (%) 25 % LVDs3.81 (2.0-3.8cm)LVEF (%)50 (>50%) Aortic Valve AI P 1/2 [id number] Mitral Valve MV E Dmfnysjb12.2cm/sMV A Dcleeckj77.0cm/sE/A ratio0.6 TDI E/Lateral E'0.0E/Medial E'0.0 Tricuspid Valve TR Peak Eshxxygs131jq/sTR Peak Gr.06jqTqMJBO40ixSs LEFT VENTRICLE The left ventricle is normal size. There is normal left ventricular wall thickness. Left ventricle systolic function is normal. The Ejection Fraction is 50-55%. There is normal LV segmental wall motion. Tissue Doppler imaging reveals abnormal left ventricular diastolic dysfunction. RIGHT VENTRICLE The right ventricle is normal size. There is normal right ventricular wall thickness. The right ventricular systolic function is normal. ATRIA The left atrium size is normal. The right atrium size is normal. The interatrial septum is intact with no evidence for an atrial septal defect. AORTIC VALVE The aortic valve is normal in structure. There is trace to mild aortic regurgitation. There is no aortic valvular stenosis. There is no aortic valvular vegetation. MITRAL VALVE The mitral valve is normal in structure. There is no mitral valve stenosis. Mitral regurgitation is mild. TRICUSPID VALVE The tricuspid valve is normal in structure. There is mild tricuspid regurgitation. Right ventricular systolic pressure is estimated at 30-40 mmHg. There is mild pulmonary hypertension. PULMONIC VALVE The pulmonic valve is not well visualized. There is no pulmonic valvular regurgitation. GREAT VESSELS The aortic root is normal in size. PERICARDIAL EFFUSION There is no significant pericardial effusion. <Conclusion> Left ventricle systolic function is normal. The Ejection Fraction is 50-55%. Diastolic dysfunction. There is trace to mild aortic regurgitation. Mitral regurgitation is mild. There is mild tricuspid regurgitation. There is mild pulmonary hypertension. There is no pulmonic valvular regurgitation.
--- NOTE | 2016-06-04 15:25 | CARD ---
APPROVED REPORT EKG Measurement Heart [id number] OR [id number] <Conclusion> Sinus rhythm with premature atrial complexes Left axis deviation T wave abnormality, consider inferior ischemia T wave abnormality, consider anterolateral ischemia Abnormal ECG
== END 2016-06-02 17:18 | disposition home or self-care (01) | DRG 134 ==
LOC: C.ER 09:36 → C.9E 11:04 → C.6T 19:31
PROVIDERS: ADMIT Internal Medicine; ATTEND Internal Medicine
DX: I16.0 Hypertensive urgency (principal); I36.1 Nonrheumatic tricuspid (valve) insufficiency; G43.909 Migraine, unspecified, not intractable, without status migrainosus; H53.8 Other visual disturbances; R42 Dizziness and giddiness; R94.31 Abnormal electrocardiogram [ECG] [EKG]; Z82.49 Family history of ischemic heart disease and other diseases of the circulatory system; E78.00 Pure hypercholesterolemia, unspecified; K29.70 Gastritis, unspecified, without bleeding; H54.7 Unspecified visual loss

== ENCOUNTER 2017-08-30 13:35 | Emergency (ER) | payer OTHER ==
[2017-08-30 13:35] VITALS: BMI 23.1
[2017-08-30 13:46] VITALS: RESP 16; TEMP 98.6
[2017-08-30] MEDS ORDERED: Naproxen 550 mg Tab PO STA (13:50)
[2017-08-30] MEDS ORDERED: Naproxen 550 mg Tab PO ONE (13:55)
--- NOTE | 2017-08-30 14:05 | C.PDOC ---
History Of Present Illness Patient presents to ED c/o left shoulder/upper arm pain for approx 2 months. He admits pain worsens with movement of shoulder, particularly abduction. Patient denies trauma/injuries, fever, rash, swelling. 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 Time Seen by Provider: 08/30/17 13:42 Chief Complaint (Nursing): Upper Extremity Problem/Injury History Per: Patient History/Exam Limitations: no limitations Onset/Duration Of Symptoms: Persistent (x 2 months) Current Symptoms Are (Timing): Still Present Quality: "Pain" Severity: Moderate Past Medical History Reviewed: Historical Data, Nursing Documentation, Vital Signs Vital Signs: Last Vital Signs Temp 98.6 F 08/30/17 13:43 Pulse 72 08/30/17 14:41 Resp 16 08/30/17 14:41 BP 143/85 08/30/17 14:41 Pulse Ox 99 08/30/17 14:41 - Medical History PMH: Gastritis, HTN, Hypercholesterolemia Family History: States: No Known Family Hx - Social History Hx Alcohol Use: No Hx Substance Use: No Review Of Systems Constitutional: Negative for: Fever, Chills Cardiovascular: Negative for: Chest Pain Respiratory: Negative for: Cough, Shortness of Breath Musculoskeletal: Positive for: Other (left shoulder/upper arm pain ). Negative for: Back Pain Skin: Negative for: Rash Neurological: Negative for: Weakness, Numbness Physical Exam - Physical Exam Appears: Well, Non-toxic, Other (in mild pain ) Skin: Normal Color, Warm, Dry, No Rash Eye(s): bilateral: Normal Inspection Oral Mucosa: Moist Cardiovascular: Rhythm Regular Respiratory: Normal Breath Sounds, No Rales, No Rhonchi, No Wheezing Extremity: Tenderness (mild TTP at left lateral shoulder/humerus without deformity or swelling, no rash), Capillary Refill (< 2 sec all digits ), No Deformity, No Swelling Extremity: Bilateral: Atraumatic, Normal Color And Temperature, Normal ROM ( worsening of pain with abduction of left shoulder) Pulses: Left Radial: Normal, Right Radial: Normal Neurological/Psych: Oriented x3, Normal Sensation Gait: Steady ED Course And Treatment O2 Sat by Pulse Oximetry: 98 (RA) Pulse Ox Interpretation: Normal - Other Rad left shoulder Xray X-Ray: Interpreted by Me, Viewed By Me Interpretation: no fx/dislocation, prominent deltoid tuberosity radiology read X-Ray: Read By Radiologist Interpretation: Accession No. : [id number]. Patient Name / ID : JESSICA BURKETT / [id number]. Exam Date : 08/30/2017 13:57:26 ( Approved ). Study Comment : Sex / Age : M / 62Y. Creator : Pee Amador MD. Dictator : Pee Amador MD. Driver Recruiter : Barrel Rifler : Pee Amador MD. Approver2 : Report Date : 08/30/2017 14:27:24. My Comment : . Left shoulder three views. History: Shoulder pain. Comparison: None available. Findings: Mild narrowing of the left glenohumeral joint space. Mild narrowing of the left acromioclavicular joint space. No evidence for acute displaced fracture or dislocation. Prominence of the greater tuberosity, nonspecific. Impression: Mild narrowing of the left glenohumeral joint space. Mild narrowing of the left acromioclavicular joint space. No evidence for acute displaced fracture or dislocation. Prominence of the greater tuberosity, nonspecific. If pain persists, consider MRI. Progress Note: Patient given PO Naprosyn and Flexeril. Xray of left shoulder ordered and reviewed. Reevaluation Time: 14:30 Reassessment Condition: Improved (On reassessment, patient is resting comfortably and pain has improved. He was given Rxs for naprosyn and flexeril, and instructed to follow up with orthopedics within 1 week. Patient understands he should return to ED if symptoms worsen.) Disposition Counseled Patient/Family Regarding: Studies Performed, Diagnosis, Need For Followup, Rx Given - Disposition Referrals: [facility] [place] [Outside] Steven Gaytan MD [Staff Provider] - Disposition: HOME/ ROUTINE Disposition Time: 14:40 Condition: STABLE Additional Instructions: FOLLOW UP WITH ORTHOPEDICS WITHIN 1 WEEK USE MEDICATIONS NEEDED RETURN TO EMERGENCY ROOM IF SYMPTOMS WORSEN SEGUIMIENTO CON ORTOPEDIA DENTRO DE 1 SEMANA USE MEDICAMENTOS SEGN SEA NECESARIO REGRESE AL RANULFO DE EMERGENCIA SI LOS SNTOMAS EMPEORAN Prescriptions: Cyclobenzaprine [Flexeril] 10 mg PO BID PRN #15 tab PRN Reason: Muscle Spasm Naproxen 375 mg PO BID PRN #20 tablet PRN Reason: pain Instructions: Shoulder Bursitis (DC) Forms: [employer] (E[place]an) Print Language: VIETNAMESE - POA Present On Arrival: None - Clinical Impression Clinical Impression: Shoulder pain, left, Sprain of shoulder, left
--- NOTE | 2017-08-30 14:29 | RAD ---
Left shoulder three views History: Shoulder pain. Comparison: None available. Findings: Mild narrowing of the left glenohumeral joint space. Mild narrowing of the left acromioclavicular joint space. No evidence for acute displaced fracture or dislocation. Prominence of the greater tuberosity, nonspecific. Impression: Mild narrowing of the left glenohumeral joint space. Mild narrowing of the left acromioclavicular joint space. No evidence for acute displaced fracture or dislocation. Prominence of the greater tuberosity, nonspecific. If pain persists, consider MRI.
[2017-08-30 14:41] VITALS: BP 143/85; PULSE 72
[2017-08-30 15:14] VITALS: O2SAT 98
== END 2017-08-30 14:43 | disposition home or self-care (01) ==
LOC: C.ER 13:35
DX: S43.402A Unspecified sprain of left shoulder joint, initial encounter (principal); X58.XXXA Exposure to other specified factors, initial encounter; M25.512 Pain in left shoulder